=== PATIENT | male | born 1975 | race Caucasian/White ===

== ENCOUNTER 2019-01-26 16:01 | Inpatient (IN) | payer OTHER ==
[2019-01-26 16:38] LABS: ABS Basophils 0 10^3/ul (0-0.2); ABS Eosinophils 0 10^3/ul (0-0.6); ABS Lymphocytes 1.2 10^3/ul (1.0-4.8); ABS Monocytes 0.8 10^3/ul (0-0.8); ABS Neutrophils 6.4 10^3/ul (1.5-7.7); ABS Nucleated RBC 0 10^3/ul; Eosinophil % 0.2 %; Hematocrit 44 % (36-46); Hemoglobin 15.2 g/dL (14.0-18.0); Lymphocyte % 14.4 %; Mean Corpuscular HGB Conc 34 g/dL (31-36); Mean Corpuscular Hemoglobin 28 pg (27-31); Mean Corpuscular Volume 83 fL (80-94); Mean Platelet Volume 8.3 fL (7.4-10.4); Nucleated Red Blood Cells % 0; Platelet Count 246 10^3/uL (150-450); Red Blood Count 5.36 10^6 /uL (4.18-5.48); Red Cell Distribution Width 13 % (10.5-15); White Blood Count 8.5 10^3/uL (3.5-10.8)
[2019-01-26 16:39] LABS: Urine Appearance Clear; Urine Bilirubin Negative (Negative); Urine Blood Negative (Negative); Urine Color Yellow; Urine Glucose Negative (Negative); Urine Ketones Negative (Negative); Urine Nitrite Negative (Negative); Urine Protein Negative (Negative); Urine Specific Gravity 1.011 (1.010-1.030); Urine Urobilinogen Negative (Negative)
--- OUTSIDE RECORDS SUMMARY | 2019-01-26 16:48 | XMS REPORT | Continuity of Care Document ---
:1975 External Reference #:[id number] Author Name Ann Almazan Care Team Providers Name Role Phone Zion Bello MD Primary Care Physician Unavailable Payers Date Identification Numbers Payment Provider Subscriber Policy Number: [id number] [employer] Brianna Hong Group Number: [id number] [address] PayID: [id number] [place] [address] Effective: 2012 Policy Number: [id number] [employer] Terrance Hong Expires: 2015 Group Number: [id number] [address] Group Name: [place] [address] PayID: [id number] Onset: 2012 Policy Number: [id number] Ben Hong PayID: [id number] [address] [place] [address] Expires: 2012 Policy Number: [id number] [facility] Terrance Hong Group Number: [id number] [address] PayID: [id number] [place] [address] Advance Directives Description No Information Available Problems Date Description Provider Status Onset: 09/01/2015 Neck pain Juan Antonio Prieto M.D. Active Onset: 11/06/2016 Obstructive sleep apnea syndrome Kalyani Nicholas MD Active Family History Date Family Member(s) Observation Comments General Diabetes General Heart Disease General cancer Mother Arthritis Mother Sister has had severe Lyme disease and Arias's palsy Social History Type Date Description Comments Sex Unknown Marital Status Lives With Occupation Currently Working Occupation [employer] [place] Tobacco Use Start: Unknown Never Smoked Cigarettes Smoking Status Reviewed: 01/25/19 Never Smoked Cigarettes ETOH Use Currently consumes 3-4 drinks/week alcohol Tobacco Use Start: Unknown Patient has never used to chew tobacco smoked - quie 06/2014 Recreational Drug Use Denies Drug Use Exercise Type/Frequency Exercises regularly Active lifestyle Exercise Type/Frequency Does gardening 3 times a week Allergies, Adverse Reactions, Alerts Date Description Reaction Status Severity Comments 02/23/2014 Sulfa Antibiotics Urticaria Active 02/26/2017 Bees Active Medications Medication Date Status Form Strength Qnty SIG Indications Ordering Provider Clonazepam 01/25 Active Tablets 0.5mg 60tab take 1 tablet F41.1 s po tid prn Varn, anxiety N.P. Bupropion HCL 01/25 Active Tablets 100mg 60tab take 1 tablet F33.9 s by mouth two Varn, times daily N.P. Baclofen 09/10 Active Tablets 10mg 30tab take 11/04-1 M54.9 s tab every 8 SONA Springer hours as needed Ibuprofen 03/10 Active Tablets 800mg 60tab by mouth s three times a SONA Springer day with food as needed Sertraline HCL 03/10 Active Tablets 100mg 45tab 1 11/04 by s mouth daily Varn, N.P. Miralax 02/05 Active Powder 3350NF 510un dissolve 1 its tablespoonful SONA Springer once daily in liquid as needed Hydroxyzine HCL 12/08 Hx Tablets 25mg 30tab 1 tablets by F41.1 s mouth every Varn, - 6-8 hours as N.P. 01/25 needed anxiety Zoloft 01/15 Hx Tablets 50mg 1 by mouth every day. SONA Springer - 100 mg once 03/10 daily per pt 02/04/18 Probiotic Colon 01/15 Hx Capsules 90cap once a day K59.00 Hernandez s SONA Springer - 09/10 Cyanocobalamin 03/04 Hx Tablets 2500mcg 90tab take one Sub s capsule/table Carlos, - t daily M.D. 09/10 sublingually. 500 mcg once daily per pt 02/04/18 Flomax 11/05 Hx Capsules 0.4mg 1 by mouth every day - 01/28 Cyclobenzaprine 06/23 Hx Tablets 10mg 60tab one tab every Juan Antonio J. HCL s 8 hours as Conner, - needed pain M.D. 01/28 and spasm Tramadol HCL 06/23 Hx Tablets 50mg 60tab 1-2 po qid Darren s prn Jhon, - N.P. 09/01 Robaxin-750 Hx Tablets 750mg 50tab 1-2 po q8 hrs . s prn muscle Emily, - spasm M.D. 09/01 Percocet Hx Tablets 5-325mg 40tab 1-2 po q4h . s prn pain Zupruk, - M.D. 09/01 Soma 00 Hx Tablets 350mg take 1/2 to 1 Unknown /0000 by mouth up - to three 01/28 times a day /2016 as needed Hydrocodone-Acet Hx Tablets 5-325mg 1 tab by Unknown aminophen /0000 mouth every 6 - hours as 01/28 needed pain /2016 Immunizations CPT Code Status Date Vaccine Lot # [id number] Given 07/30/2018 Influenza Virus Vaccine, Quadrivalent, Split, Preservative Free Vital Signs Date Vital Result Comment 01/25/2019 11:32am Height 67 inches 5'7" Weight 148.00 lb Heart Rate 72 /min BP Systolic 118 mmHg BP Diastolic 67 mmHg Body Temperature 97.6 F O2 % BldC Oximetry 97 % BMI (Body Mass Index) 23.2 kg/m2 12/08/2018 11:50am Height 67 inches 5'7" Weight 154.00 lb Heart Rate 72 /min BP Systolic 122 mmHg BP Diastolic 74 mmHg Body Temperature 97.1 F O2 % BldC Oximetry 97 % BMI (Body Mass Index) 24.1 kg/m2 09/10/2018 4:02pm Height 67 inches 5'7" Weight 163.00 lb Heart Rate 72 /min BP Systolic 115 mmHg BP Diastolic 75 mmHg O2 % BldC Oximetry 97 % BMI (Body Mass Index) 25.5 kg/m2 02/04/2018 10:14am Height 67 inches 5'7" Weight 162.12 lb Heart Rate 66 /min BP Systolic Sitting 110 mmHg Lue large cuff BP Diastolic Sitting 70 mmHg Lue large cuff Respiratory Rate 16 /min O2 % BldC Oximetry 97 % On Ra BMI (Body Mass Index) 25.4 kg/m2 01/15/2018 3:42pm Weight 171.75 lb Heart Rate 82 /min BP Systolic 112 mmHg BP Diastolic 62 mmHg O2 % BldC Oximetry 96 % 02/26/2017 2:12pm Height 67 inches 5'7" Weight 169.12 lb Heart Rate 72 /min BP Systolic Sitting 137 mmHg BP Diastolic Sitting 75 mmHg Respiratory Rate 14 /min Body Temperature 98.7 F BMI (Body Mass Index) 26.5 kg/m2 01/29/2017 2:49pm Height 67 inches 5'7" Weight 171.50 lb Heart Rate 60 /min BP Systolic Sitting 108 mmHg BP Diastolic Sitting 68 mmHg Respiratory Rate 14 /min Body Temperature 97.3 F BMI (Body Mass Index) 26.9 kg/m2 11/06/2016 3:04pm Height 67 inches 5'7" Weight 67.00 lb BP Systolic 108 mmHg BP Diastolic 70 mmHg Respiratory Rate 16 /min O2 % BldC Oximetry 97 % BMI (Body Mass Index) 10.5 kg/m2 09/01/2015 3:26pm Height 67 inches 5'7" Weight 163.00 lb Heart Rate 78 /min BP Systolic Sitting 122 mmHg BP Diastolic Sitting 80 mmHg Pain Level 6 neck/back BMI (Body Mass Index) 25.5 kg/m2 Results Test Date Facility Test Result H/L Range Note CBC Auto Diff 09/21/2018 [facility] White Blood 6.9 10^3/uL N 3.5-10.[address] [place] [address] [phone] Red Blood Count 5.09 10^6/uL N 4.00-5.40 Hemoglobin 14.6 g/dL N 14.0-18.0 Hematocrit 43 % N 42-52 Mean Corpuscular Volume 84 fL N 80-94 Mean Corpuscular Hemoglobin 29 pg N 27-31 Mean Corpuscular HGB Conc 34 g/dL N 31-36 Red Cell Distribution Width 13 % N 10.5-15 Platelet Count 226 10^3/uL N 150-450 Mean Platelet Volume 8.9 fL N 7.4-10.4 Abs Neutrophils 4.1 10^3/uL N 1.5-7.7 Abs Lymphocytes 2.2 10^3/uL N 1.0-4.8 Abs Monocytes 0.6 10^3/uL N 0-0.8 Abs Eosinophils 0 10^3/uL N 0-0.6 Abs Basophils 0 10^3/uL N 0-0.2 Abs Nucleated RBC 0 10^3/uL Granulocyte % 58.4 % N 38-83 Lymphocyte % 31.6 % N 25-47 Monocyte % 9.1 % High 0-7 Eosinophil % 0.5 % N 0-6 Basophil % 0.4 % N 0-2 Nucleated Red Blood Cells % 0.1 Comp Metabolic Panel 09/21/2018 [facility] Sodium 142 mmol/L N 135-[address] [place] [address] [phone] Potassium 4.1 mmol/L N 3.5-5.0 Chloride 109 mmol/L N 101-111 Co2 Carbon Dioxide 28 mmol/L N 22-32 Anion Gap 5 mmol/L N 2-11 Glucose 93 mg/dL N 70-100 Blood Urea Nitrogen 15 mg/dL N 6-24 Creatinine 1.10 mg/dL N 0.67-1.17 BUN/Creatinine Ratio 13.6 N 8-20 Calcium 9.7 mg/dL N 8.6-10.3 Total Protein 6.8 g/dL N 6.4-8.9 Albumin 4.4 g/dL N 3.2-5.2 Globulin 2.4 g/dL N 2-4 Albumin/Globulin Ratio 1.8 N 1-3 Total Bilirubin 0.60 mg/dL N 0.2-1.0 Alkaline Phosphatase 58 U/L N 34-104 Alt 14 U/L N 7-52 Ast 15 U/L N 13-39 Egfr Non- 73.4 >60 Egfr 88.8 >60 1 Laboratory test 09/21/2018 [facility] C Reactive < 1.00 mg/L N <8.[address] [place] [address] [phone] Connective Tissue 09/21/2018 [facility] Anti-Nuclear 0.2 U [address] [place] [address] [phone] Cyclic Citrullinated Peptide <15.6 U 3 Interpretation See Comment 4 Laboratory test 09/21/2018 [facility] Erythrocyte Sed 10 mm/Hr N 0-[address] [place] [address] [phone] Lyme Disease Serology Negative Negative 5 Rheumatoid Factor < 10 IU/mL N <15 TSH (Thyroid Stim Horm) 1.31 mcIU/mL N 0.34-5.60 Tick-Borne Panel 09/21/2018 [facility] Babesia Negative Negative PCR Blood [address] [place] [address] [phone] Babesia ducani Negative Negative Babesia divergens/Mo-1 Negative Negative 6 Anaplasma phagocytophilum Negative Negative Ehrlichia chaffeensis Negative Negative Ehrlichia ewingii/canis Negative Negative Ehrlichia muris-like Negative Negative 7 B. miyamotoi PCR, B Negative Negative 8 Laboratory test 03/05/2018 [facility] Surgical SEE RESULT 9 , [address] [place] [address] [phone] Order 01/30/2018 [facility] Stool cards Negative [address] [place] [address] blood x 3 [phone] CBC Auto Diff 01/17/2018 [facility] White Blood 6.8 10^3/uL N 3.5-[address] Count 0.8 [place] [address] [phone] Red Blood Count 5.43 10^6/uL High 4.0-5.4 Hemoglobin 15.2 g/dL N 14.0-18.0 Hematocrit 46 % N 42-52 Mean Corpuscular Volume 84 fL N 80-94 Mean Corpuscular Hemoglobin 28 pg N 27-31 Mean Corpuscular HGB Conc 33 g/dL N 31-36 Red Cell Distribution Width 13 % N 10.5-15 Platelet Count 243 10^3/uL N 150-450 Mean Platelet Volume 9 um3 N 7.4-10.4 Abs Neutrophils 3.8 10^3/uL N 1.5-7.7 Abs Lymphocytes 2.2 10^3/uL N 1.0-4.8 Abs Monocytes 0.7 10^3/uL N 0-0.8 Abs Eosinophils 0.1 10^3/uL N 0-0.6 Abs Basophils 0 10^3/uL N 0-0.2 Abs Nucleated RBC 0 10^3/uL Granulocyte % 56.1 % N 38-83 Lymphocyte % 31.8 % N 25-47 Monocyte % 10.7 % High 0-7 Eosinophil % 1.0 % N 0-6 Basophil % 0.4 % N 0-2 Nucleated Red Blood Cells % 0.1 Comp Metabolic Panel 01/17/2018 [facility] Sodium 137 mmol/L N 133-[address] [place] [address] [phone] Potassium 4.5 mmol/L N 3.5-5.0 Chloride 106 mmol/L N 101-111 Co2 Carbon Dioxide 26 mmol/L N 22-32 Anion Gap 5 mmol/L N 2-11 Glucose 124 mg/dL High 70-100 Blood Urea Nitrogen 18 mg/dL N 6-24 Creatinine 1.02 mg/dL N 0.67-1.17 BUN/Creatinine Ratio 17.6 N 8-20 Calcium 9.7 mg/dL N 8.6-10.3 Total Protein 6.8 g/dL N 6.4-8.9 Albumin 4.1 g/dL N 3.2-5.2 Globulin 2.7 g/dL N 2-4 Albumin/Globulin Ratio 1.5 N 1-3 Total Bilirubin 0.80 mg/dL N 0.2-1.0 Alkaline Phosphatase 61 U/L N 34-104 Alt 15 U/L N 7-52 Ast 13 U/L N 13-39 Egfr Non- 80.5 >60 Egfr 103.5 >60 11 Laboratory test 01/17/2018 [facility] TSH (Thyroid 0.94 mcIU/mL N 0.34-5.[address] Stim Horm) [place] [address] [phone] Vitamin B12 > 1450 pg/mL High 180-914 12 Laboratory test 02/26/2017 [facility] Angiotensin 43 U/L N 8 - 53 [address] [place] [address] [phone] Creatine Kinase(CK) 132 U/L N 10-223 CBC Auto Diff 02/26/2017 [facility] White Blood 9.2 10^3/uL N 3.5-10.[address] [place] [address] [phone] Red Blood Count 5.52 10^6/uL High 4.0-5.4 Hemoglobin 15.2 g/dL N 14.0-18.0 Hematocrit 45 % N 42-52 Mean Corpuscular Volume 82 fL N 80-94 Mean Corpuscular Hemoglobin 27 pg N 27-31 Mean Corpuscular HGB Conc 34 g/dL N 31-36 Red Cell Distribution Width 13 % N 10.5-15 Platelet Count 242 10^3/uL N 150-450 Mean Platelet Volume 9 um3 N 7.4-10.4 Abs Neutrophils 5.6 10^3/uL N 1.5-7.7 Abs Lymphocytes 2.8 10^3/uL N 1.0-4.8 Abs Monocytes 0.8 10^3/uL N 0-0.8 Abs Eosinophils 0 10^3/uL N 0-0.6 Abs Basophils 0 10^3/uL N 0-0.2 Abs Nucleated RBC 0 10^3/uL N Granulocyte % 61.0 % N 38-83 Lymphocyte % 30.1 % N 25-47 Monocyte % 8.3 % N 1-9 Eosinophil % 0.2 % N 0-6 Basophil % 0.4 % N 0-2 Nucleated Red Blood Cells % 0 N Laboratory test 02/26/2017 [facility] C Reactive 1.30 mg/L N < 5.00 [address] [place] [address] [phone] Laboratory test 02/26/2017 [facility] Miscellaneous See Comment N [address] [place] [address] [phone] Ferritin 107.3 ng/mL N 24-336 Celiac Hla DQ1/DQ2 02/26/2017 [facility] Hla-Dqa1 SEE BELOW N [address] [place] [address] [phone] Hla-DQB1 SEE BELOW N 17 Celiac Gene Pairs Present? Yes N Celiac Gene Interpretation See Comment N 18 Celiac Panel 02/26/2017 [facility] Tissue Transglutaminase <1.2 U/mL N [address] [place] [address] [phone] Immunoglobulin A 350 mg/dL N 61 - 356 Celiac Interpretation See Comment N 20 Alkaline Phos 02/26/2017 [facility] Alkaline 73 U/L N 45 - [address] [place] [address] [phone] Alp Liver 1% 52.1 % N 27.8-76.3 Alp Liver 1 38.0 IU/L N 16.2-70.2 Alp Liver 2% 2.7 % N 0.0-8.0 Alp Liver 2 2.0 IU/L N 0.0-5.8 Alp Bone % 45.2 % N 19.1-67.7 Alp Bone 33.0 IU/L N 12.1-42.7 Alp Intestine % 0.0 % N 0.0-20.6 Alp Intestine 0.0 IU/L N 0.0-11.0 Alp Placental NotPresent N 21 Laboratory test 02/26/2017 [facility] Erythrocyte Sed 10 mm/Hr N 0-[address] [place] [address] [phone] Free T4 (Free Thyroxine) 0.80 ng/dL N 0.61-1.12 T3 Free 4.70 pg/mL High 2.5-3.9 Hepatitis 02/26/2017 [facility] Hepatitis C Nonreactive N Nonreactive Acute Panel [address] [place] [place] [address] [phone] Hepatitis A AB Igm Nonreactive N Nonreactive Hepatitis B Core AB Igm Nonreactive N Nonreactive Hepatitis B Surface Ag Nonreactive N Nonreactive Anca AB Ser If 02/26/2017 [facility] C-Anca Negative N Negative [address] [place] [address] [phone] P-Anca Negative N Negative 22 Vitamin B12 And 02/26/2017 [facility] Vitamin B12 211 pg/mL N 180-914 23 Folate Serum [address] [place] [address] [phone] Folic Acid (Folate) 6.59 ng/mL N >3.99 Vitamin D 1,25 02/26/2017 [facility] Vitamin D Total 31.8 ng/mL N 30-50 And Vitamin D,[address] 25(Oh) [place] [address] [phone] Vitamin D, 1,25 Dihydroxy 103 pg/mL Abnormal 18-64 24 Hla B27 02/26/2017 [facility] Hla B27 Negative N [address] [place] [address] [phone] Hla B27 Interp See Comment N 26 Laboratory test 02/26/2017 [facility] Copper, Serum 1.00 g/mL N 0.75-1.45 [address] [place] [address] [phone] Laboratory test 02/26/2017 [facility] Aldolase 6.6 U/L N <7.7 [address] [place] [address] [phone] Aso (Antistreptolysin O) Titer Negative IU/mL N <200 Iu/mL 29 Acetylcarnintine 02/26/2017 [facility] Acetylcarnitine 10.31 N 2.00-17.[address] C2 nmol/[place] [address] [phone] Acrylylcarnitine C3:1 <0.02 nmol/mL N <0.07 Propionylcarnitine C3 0.40 nmol/mL N < 0.88 Formiminoglutamate, Figlu 0.01 nmol/mL N <0.14 Iso Butyrylcarnitine C4 0.20 nmol/mL N < 0.83 Tiglylcarnitine, C5:1 0.03 nmol/mL N <0.11 Isovaleryl 2 Methylbutyrylcarn 0.17 nmol/mL N < 0.51 3 Oh iso butyrylcarnitin C4-Oh 0.04 nmol/mL N <0.18 Hexenoylcarnitine C6:1 0.01 nmol/mL N <0.15 Hexanolcarnitine C6 0.07 nmol/mL N < 0.17 3 Oh isovalerylcarnitine C5-Oh 0.03 nmol/mL N <0.10 Benzoylcarnitine 0.03 nmol/mL N <0.10 Heptanoylcarnitine, C7 0.03 nmol/mL N <0.06 3 Oh Hexanolcarnitine C6-Oh 0.02 nmol/mL N < 0.09 Phenylacetylcarnitine 0.06 nmol/mL N <0.29 Salicylcarnitine <0.05 nmol/mL N <0.09 Octenoylcarnitine C8:1 0.58 nmol/mL N < 0.88 Octenoylcarnitine C8 0.21 nmol/mL N < 0.78 Malonylcarnitine, C3-DC 0.08 nmol/mL N <0.26 Decadienoylcarnitine C10:2 <0.05 nmol/mL N <0.26 Decenoylcarnitine C10:1 0.21 nmol/mL N < 0.47 Decenoylcarnitine C10 0.31 nmol/mL N < 0.88 Methylmalonylcarnitine C4-DC 0.05 nmol/mL Abnormal <0.05 3Oh-decenoylcarnitine C10:1-Oh 0.02 nmol/mL N <0.13 Glutarylcarnitine C5-DC 0.06 nmol/mL N < 0.11 Dodecenoylcarnitine C12:1 0.10 nmol/mL N < 0.35 Dodecenoylcarnitine C12 0.09 nmol/mL N < 0.26 3Methylglutarylcarnitine C6-DC 0.05 nmol/mL N <0.43 3OHdodecenoylcarnitine C12:1Oh 0.03 nmol/mL N <0.13 3 Oh Dodecenoylcarnitine C12-O 0.02 nmol/mL N < 0.08 Tetradecadienoylcaraitine C14: 0.04 nmol/mL N < 0.18 Tetradecenoylcarnitine C14:1 0.10 nmol/mL N < 0.24 Tetradecenoylcarnitine C14 0.03 nmol/mL N < 0.12 Octanedioylcarnitine, C8-DC 0.01 nmol/mL N <0.19 3 Oh Tetradecenoylcarnitine C1 0.02 nmol/mL N < 0.13 2-Bv-Jtcwajpeqsozybsqooycfn C1 0.01 nmol/mL N < 0.08 Hexadecenoylcarnitine C16:1 0.04 nmol/mL N < 0.10 Hexadecanoylcarnitine C16 0.09 nmol/mL N < 0.23 3 Oh Hexadecenoylcarnitine C16 0.02 nmol/mL N < 0.06 3 Oh Hexadecenoylcarnitine C16 0.01 nmol/mL N < 0.06 Linoleylcarnitine C18:2 0.07 nmol/mL N < 0.24 Oleylcarnitine C18:1 0.17 nmol/mL N < 0.39 Stearoylcarnitine C18 0.05 nmol/mL N < 0.14 Dodecanedioylcarnitine, C12-DC 0.01 nmol/mL N <0.04 3 Oh Linoleylcarnitine C18:2-O <0.02 nmol/mL N < 0.06 3 Oh Oleylcarnitine C18:1-Oh 0.01 nmol/mL N < 0.06 3OHoctadecanoylcarnitine C18oh 0.01 nmol/mL N <0.03 Acylcarnitine Comment See Comment N 30 Laboratory test 02/26/2017 [facility] Ammonia 44 ?mol/L N 16- [address] [place] [address] [phone] Ssa/SSB Abs Igg 02/26/2017 [facility] SS-A/Ro <0.2 U N [address] [place] [address] [phone] SS-B/La Antibody <0.2 U N 32 Laboratory test 02/26/2017 [facility] Free Cortisol 0.15 g/dL N [address] [place] [address] [phone] Comp Metabolic 02/26/2017 [facility] Sodium 137 mmol/L N 133- [address] 5 [place] [address] [phone] Potassium 3.8 mmol/L N 3.5-5.0 Chloride 104 mmol/L N 101-111 Co2 Carbon Dioxide 27 mmol/L N 22-32 Anion Gap 6 mmol/L N 2-11 Glucose 98 mg/dL N 70-100 Blood Urea Nitrogen 13 mg/dL N 6-24 Creatinine 1.13 mg/dL N 0.67-1.17 BUN/Creatinine Ratio 11.5 N 8-20 Calcium 9.6 mg/dL N 8.6-10.3 Total Protein 7.4 g/dL N 6.4-8.9 Albumin 4.4 g/dL N 3.2-5.2 Globulin 3.0 g/dL N 2-4 Albumin/Globulin Ratio 1.5 N 1-3 Total Bilirubin 0.60 mg/dL N 0.2-1.0 Alkaline Phosphatase 66 U/L N 34-104 Alt 17 U/L N 7-52 Ast 15 U/L N 13-39 Egfr Non- 71.9 N >60 Egfr 92.4 N >60 34 Surgical 12/24/2011 [facility] Surgical 35 Pathology 101 [facility] Pathology <SEE NOTE> [place] [address] [phone] Laboratory 12/18/2011 [facility] PTT (Aptt) 31.4 25.1 36 test finding [facility] 5-38 [place] [address] .53 [phone] Type And 12/18/2011 [facility] Patient Blood A POSITIVE Screen [address] [place] [address] Type (Pre-Adm) [place] [address] [phone] Antibody Screen NEGATIVE Specimen Discard Date 01/01/12 37 Protime 12/18/2011 [facility] Inr 0.99 0.88-1.13 [address] [place] [address] [phone] Protime 11.7 SEC 10.3-13.5 39 Basic Metabolic Panel 12/18/2011 [facility] Sodium 141 mmol/L 135-145 [place] [address] [phone] Potassium 4.4 mmol/L 3.5-5.0 Chloride 105 mmol/L 101-111 Co2 (Carbon Dioxide) 30.0 mmol/L 22-32 Anion Gap 6.0 mmol/L 2-11 40 Glucose 65 mg/dL Low 70-100 BUN 16 mg/dL 6-24 Creatinine 1.0 mg/dL 0.50-1.40 One Over Creatinine 1.00 BUN/Creatinine Ratio 16.0 8-20 Calcium 9.7 mg/dL 8.1-9.9 eGFR Non- 85.0 > 60 eGFR 109.4 > 60 41 CBC Auto Diff 12/18/2011 [facility] White Blood 8.9 CUMM 4.8- 10.8 [address] [facility] [place] [address] [phone] Red Cell Count 5.39 CUMM 4.6-6.2 Hemoglobin 15.7 g/dL 14.0-18.0 Hematocrit 46 % 42-52 Mean Corpuscular Volume 85 um3 80-94 Mean Corpuscular Hemoglob 29 pg 27-31 Mean Corpuscular HGB Cone 35 g/dL 32-36 Redcell Distribution WDTH 13 % 10.5-15 Platelet Count 250 CUMM 150-450 Mean Platelet Volume 9.2 um3 7.4-10.4 Gran % 63.1 % 38-83 Lymph % 26.1 % 25-47 Mononuclear % 9.7 % High 1-9 Eosinophil % 0.8 % 0-6 Basophil % 0.3 % 0-2 Abs Lymphs 2.3 1.0-4.8 Abs Mononuclear 0.9 High 0-0.8 Absolute Neutrophil Count 5.6 1.5-7.7 Abs Eosinophils 0.1 0-0.6 Abs Basophils 0 0-0.2 1 Because ethnic data is not always readily available, this report includes an eGFR for both -Americans and non- Americans. The National Kidney Disease Education Program (NKDEP) does not endorse the use of the MDRD equation for patients that are not between the ages of 18 and 70, are , have extremes of body size, muscle mass, or nutritional status, or are non- or non-. According to the National Kidney Foundation, irrespective of diagnosis, the stage of the disease is based on the level of kidney function: Stage Description GFR(mL/min/1.73 m(2)) 1 Kidney damage with normal or decreased GFR 90 2 Kidney damage with mild decrease in GFR 60-89 3 Moderate decrease in GFR 30-59 4 Severe decrease in GFR 15-29 5 Kidney failure <15 (or dialysis) 2 REFERENCE VALUE <=1.0 (Negative) 3 REFERENCE VALUE <20.0 (Negative) 4 Tests for antibodies to dsDNA and ROSY antigens are not performed automatically unless the NICHOLE result is > or= 3.0 U. Studies performed at [facility] indicate that positive NICHOLE results <3.0 U are rarely accompanied by positive second order tests. Test Performed by: [facility] - [address] [address] 5 No evidence of antibodies to B. burgdorferi detected. False negative results may occur in recently infected patients (<=2 weeks) due to low or undetectable antibody levels to B. burgdorferi. If recent exposure is suspected, a second sample should be collected and tested in 2-4 weeks. Test Performed by: [facility] - [address] [address] 6 ADDITIONAL INFORMATION This test was developed and its performance characteristics determined by [facility] in a manner consistent with CLIA requirements. This test has not been cleared or approved by the U.S. Food and Drug Administration. 7 ADDITIONAL INFORMATION This test was developed and its performance characteristics determined by [facility] in a manner consistent with CLIA requirements. This test has not been cleared or approved by the U.S. Food and Drug Administration. 8 ADDITIONAL INFORMATION This test was developed and its performance characteristics determined by [facility] in a manner consistent with CLIA requirements. This test has not been cleared or approved by the U.S. Food and Drug Administration. Test Performed by: [facility] - [address] [id number] SEE RESULT BELOW Name: ANDERSON HONG : [address]: Matt Aguiar MD Acct: [id number] Unit: [id number] AGE: 42 Location: [facility] Re03/05/18 SEX: M Status: DEP REF SPEC: [id number] JULISSA: 03/05/1827 [facility] DR: Matt Aguiar MD REQ: [id number] RECD: 03/05/18 STATUS: JULITA DIALLO DR: Hernandez Springer [employer] _ ORDERED: LEVEL 4/2 COMMENTS: [id number] FINAL DIAGNOSIS 1. Colon, random, biopsy: -- Benign colonic mucosa with no significant pathologic abnormalities. -- No evidence of microscopic colitis. 2. Colon, rectum, biopsy: -- Benign colonic mucosa with no significant pathologic abnormalities. -- No evidence of microscopic colitis. CLINICAL HISTORY No history given POST-OPERATIVE DIAGNOSIS Colonoscopy to terminal ileum ? normal; random and rectal biopsies; negative upper anal sphincter tone; negative bert-rectum. Conclusions/Plan: 10 years GROSS DESCRIPTION 1. The specimen is received in formalin labeled, Biopsies Random Colon, and consists of a 0.6 x 0.5 by up to 0.2 cm aggregate of yellow to byers-pink irregular to polypoid soft tissue fragments, which is entirely submitted in one cassette. 2. The specimen is received in formalin labeled, Biopsies Rectum, and consists of two byers red-brown irregular to polypoid soft tissue fragments measuring 0.3 x 0.3 x 0.2 cm and 0.5 x 0.3 x 0.1 cm, which are entirely submitted in one cassette. Signed by and Reported on: Pat Palmer MD 03/06/18 1034 END OF REPORT DEPARTMENT OF PATHOLOGY, [address] [place] [address] You Schaefer M.D. Director [facility] # [id number] 11 Because ethnic data is not always readily available, this report includes an eGFR for both -Americans and non- Americans. The National Kidney Disease Education Program (NKDEP) does not endorse the use of the MDRD equation for patients that are not between the ages of 18 and 70, are , have extremes of body size, muscle mass, or nutritional status, or are non- or non-. According to the National Kidney Foundation, irrespective of diagnosis, the stage of the disease is based on the level of kidney function: Stage Description GFR(mL/min/1.73 m(2)) 1 Kidney damage with normal or decreased GFR 90 2 Kidney damage with mild decrease in GFR 60-89 3 Moderate decrease in GFR 30-59 4 Severe decrease in GFR 15-29 5 Kidney failure <15 (or dialysis) 12 Normal Range 180 to 914 Indeterminate Range 145 to 180 Deficient Range <145 13 Test Performed by: [address] [address] 14 Acute inflammation: >10.00 15 Test Result Flag Unit RefValue Tropheryma whipplei PCR, B Specimen Source BLOOD Result Negative REFERENCE VALUE Not Applicable ADDITIONAL INFORMATION This test was developed and its performance characteristics determined by [facility] in a manner consistent with CLIA requirements. This test has not been cleared or approved by the U.S. Food and Drug Administration. Test Performed by: [facility] - [address] [address] 16 RESULT: 03:01,03 REFERENCE VALUE Not Applicable 17 RESULT: 03:02,03:02 DQ Serologic Equivalent: 8,8 REFERENCE VALUE Not Applicable 18 These genes are permissive for celiac disease. The absence of HLA celiac permissive genes would make the presence of celiac disease unlikely. However, these genes can also be present in the normal population. ADDITIONAL INFORMATION Method: Molecular typing of HLA antigens performed using reverse SSOP and/or SSP methods, reported as serological equivalents and low to medium resolution molecular values. Performing Laboratory CLIA# [id number] Test Performed by: [facility] - [address] [address] 19 REFERENCE VALUE <4.0 (Negative) Test Performed by: [facility] - [address] [address] 20 Negative serology. Celiac disease unlikely. However, approximately 10% of patients with celiac disease are seronegative. Also, patients who are already adhering to a gluten-free diet may be seronegative. If celiac disease is highly clinically suspected, consider HLA-DQ typing. Test Performed by: [facility] - [address] [address] 21 REFERENCE VALUE Not present Test Performed by: [facility] - [address] [address] 22 Negative for cANCA and pANCA patterns by immunofluorescence. ADDITIONAL INFORMATION This test was developed and its performance characteristics determined by [facility] in a manner consistent with CLIA requirements. This test has not been cleared or approved by the U.S. Food and Drug Administration. Test Performed by: [facility] - [address] [address] 23 Normal Range 180 to 914 Indeterminate Range 145 to 180 Deficient Range <145 24 ADDITIONAL INFORMATION This test was developed and its performance characteristics determined by [facility] in a manner consistent with CLIA requirements. This test has not been cleared or approved by the U.S. Food and Drug Administration. Test Performed by: [facility] - [address] [address] 25 REFERENCE VALUE Not Applicable 26 RESULT: HLA-B27 antigen was not detected. ADDITIONAL INFORMATION Method: Flow Cytometry Performing Laboratory CLIA# [id number] This test was developed and its performance characteristics determined by [facility] in a manner consistent with CLIA requirements. This test has not been cleared or approved by the U.S. Food and Drug Administration. Test Performed by: [facility] - [address] [address] 27 ADDITIONAL INFORMATION This test was developed and its performance characteristics determined by [facility] in a manner consistent with CLIA requirements. This test has not been cleared or approved by the U.S. Food and Drug Administration. Test Performed by: [facility] - [address] [address] 28 Test Performed by: [facility] - [address] [address] 29 Normal values may vary with age, season and geographic area. Titers above upper limits may be indicative of infection, however only a two dilution rise in titer is required to be considered significant. ASO titer will usually rise above upper limits within one week of exposure, increase to peak levels at 3-5 weeks and return to baseline level at 6-12 twelve months. 30 In this sample, the acylcarnitine profile was essentially normal. ADDITIONAL INFORMATION This test was developed and its performance characteristics determined by [facility] in a manner consistent with CLIA requirements. This test has not been cleared or approved by the U.S. Food and Drug Administration. Test Performed by: [facility] - [address] [address] 31 REFERENCE VALUE <1.0 (Negative) 32 REFERENCE VALUE <1.0 (Negative) Test Performed by: [facility] - [address] [address] 33 Adult Reference Ranges for Cortisol, Free, LC/MS/MS: 8:00 - 10:00 AM 0.07-0.93 mcg/dL 4:00 - 6:00 PM 0.04-0.45 mcg/dL 10:00 - 11:00 PM 0.04-0.35 mcg/dL This test was developed and its analytical performance characteristics have been determined by [facility]. It has not been cleared or approved by FDA. This assay has been validated pursuant to the CLIA regulations and is used for clinical purposes. Test Performed by: [facility] [place] [address] [place] [address] 34 Because ethnic data is not always readily available, this report includes an eGFR for both -Americans and non- Americans. The National Kidney Disease Education Program (NKDEP) does not endorse the use of the MDRD equation for patients that are not between the ages of 18 and 70, are , have extremes of body size, muscle mass, or nutritional status, or are non- or non-. According to the National Kidney Foundation, irrespective of diagnosis, the stage of the disease is based on the level of kidney function: Stage Description GFR(mL/min/1.73 m(2)) 1 Kidney damage with normal or decreased GFR 90 2 Kidney damage with mild decrease in GFR 60-89 3 Moderate decrease in GFR 30-59 4 Severe decrease in GFR 15-29 5 Kidney failure <15 (or dialysis) 35 ---- RUN DATE: 12/25/11 [facility] NMI LIVE PAGE 1 RUN TIME: 1457 Specimen Inquiry RUN USER: INTERFACE -- Name: ANDERSON HONG Status: DIS IN Re12/24/11 Age/Sex: 36/M Unit#: [id number] Location: [facility] : 77 -- Specimen: [id number] SOUSanya Spec Date: 12/24/[address]: Karthik Mitchell MD Spec Type: SURGICAL P Received: 12/24/11-1254 Copies to: SPECIMEN 1) C4-C5 DISC 2) C5-6 DISC HISTORY PRE-OP DIAGNOSIS: C4-5, C5-6 herniated disc. GROSS DESCRIPTION 1) The specimen is received in formalin labelled Anderson Hong, C4-5 Disc, and consists of a few fragments of pink dense fibrous tissue measuring in aggregate 3.0 x 2.5 x 2.0 cm. Golf Caddie section, one cassette labelled 1. 2) The specimen is received in formalin labelled Anderson Hong, C5-6 Disc, and consists of a few fragments of pink dense fibrous tissue measuring in aggregate 3.0 x 2.5 x 2.0 cm. Golf Caddie section, one cassette labelled 2. DIAGNOSIS 1) Disc, C4-5, discectomy: Fibrohyaline cartilage with marked regenerative changes. 2) Disc, C5-6, discectomy: Fibrohyaline cartilage with marked regenerative changes. Signed Electronically by: RADHA SCHOFIELD 12/25/11 1457 -- -- DEPARTMENT OF PATHOLOGY, [address] [place] [address] [facility] Permit #[id number] You Schaefer M.D. Director Radha Schofield M.D. Cryogenics Repairer Dir miguel angel -- 36 AA 12/24/11 37 PREADMISSION TESTING SAMPLES FOR BLOOD BANK WILL BE HELD FOR 14 DAYS FROM THE DATE OF COLLECTION *IF* THE FOLLOWING CRITERIA ARE MET: 1) THE PATIENT HAS *NOT* BEEN IN THE LAST 3 MONTHS. 2) THE PATIENT HAS *NOT* BEEN TRANSFUSED IN THE LAST 3 MONTHS. PREADMISSION TESTING SAMPLES WILL *NOT* BE HELD FOR 14 DAYS FROM PATIENTS WHO IN THE LAST 3 MONTHS: 1) HAVE BEEN 2) HAVE BEEN TRANSFUSED THESE PATIENTS *MUST* BE COLLECTED WITHIN 3 DAYS OF THE SURGERY DATE. 38 Recommended INR for Patients on Oral Anticoagulants Prophylaxis 2.0 - 3.0 Treatment of thrombosis 2.0 - 3.0 Prevention of embolism 2.0 - 3.0 Prevention of embolism from prosthetic heart valves 2.5 - 3.5 39 DIAGNOSIS,TREATMENT,AND THERAPY MUST BE BASED ON THE INR VALUE ALONE. 40 Anion gap measurement may be of limited value in the presence of any alkalosis, especially in a combined acid base disorder. . 41 Because ethnic data is not always readily available, this report includes an eGFR for both -Americans and non- Americans. The National Kidney Disease Education Program (NKDEP) does not endorse the use of the MDRD equation for patients that are not between the ages of 18 and 70, are , have extremes of body size, muscle mass, or nutritional status, or are non- or non-. According to the National Kidney Foundation, irrespective of diagnosis, the stage of the disease is based on the level of kidney function: Stage Description GFR(mL/min/1.73 m(2)) 1 Kidney damage with normal or decreased GFR 90 2 Kidney damage with mild decrease in GFR 60-89 3 Moderate decrease in GFR 30-59 4 Severe decrease in GFR 15-29 5 Kidney failure <15 (or dialysis) Procedures Date Code Description Status 03/05/2018 [id number] Colonoscopy Completed 12/21/2013 12470 Polysomnography Sleep Staging 4+ Parameters W/Cpap Completed 12/01/2013 27816 Polysomnography Sleep Staging 4+ Parameters Completed 11/02/2012 69679 Rad Exam; Elbow, Limited Completed 11/02/2012 05576 Rad Exam; Elbow, Limited Completed 11/02/2012 09914 Rad Exam; Elbow, Limited Completed 12/24/2011 95840 Anterior Instrumentation 2-3 Vertebral Segments Completed 12/24/2011 72318 arthrodesis,anterior interbody incl disc space Completed prep,discectomy,de 12/24/2011 91476 Allograft For Spine Surgery,Structural (Bone Bank) Completed 12/18/2011 79761 EKG, Interpretation Only Completed 11/11/2011 97600 Rad Shoulder Comp, Min. 2 Views Completed Encounters Type Date Location Provider Dx Diagnosis Office Visit 12/08/2018 [facility] Internal Neelam Warren, F41.1 Generalized anxiety 11:40a Medicine - N.P. disorder [place] Office Visit 09/10/2018 [facility] Internal Hernandez Springer NP M54.2 Cervicalgia 4:00p Medicine - Surekha M54.9 Dorsalgia, unspecified M25.50 Pain in unspecified joint R53.83 Other fatigue Office Visit 02/04/2018 Pulmonology And Irena G47.33 Obstructive sleep 10:30a Sleep Services Of LUIS Moore, RN, apnea (adult) [facility] SHEET MANAGER-BC (pediatric) Office Visit 01/15/2018 [facility] Internal Hernandez Springer NP K62.5 Hemorrhage of 3:00p Medicine - anus and rectum [place] K59.00 Constipation, unspecified E53.8 Deficiency of other specified B group vitamins F41.9 Anxiety disorder, unspecified Office Visit 02/26/2017 2:00p Rheumatology Services Heriberto Gonzalez M79.1 Myalgia Of Gu[place] Peterson R53.83 Other fatigue R68.2 Dry mouth, unspecified R07.89 Other chest pain K92.1 Melena R25.1 Tremor, unspecified R70.0 Elevated erythrocyte sedimentation rate M54.2 Cervicalgia R76.8 Other specified abnormal immunological findings in serum Office Visit 01/29/2017 3:00p [facility] Kolton Loya A69.20 Lyme disease, For Infectious Kristen Murray unspecified Diseases R76.8 Other specified abnormal immunological findings in serum R29.898 Oth symptoms and signs involving the musculoskeletal system Office Visit 11/06/2016 3:15p Pulmonology And Kalyani G47.33 Obstructive sleep Sleep Services Of MD Yu apnea (adult) [facility] (pediatric) Office Visit 09/01/2015 3:20p Neurosurgery Juan Antonio Maciel M54.2 Cervicalgia Services Of [facility] Kristen Prieto Z98.89 Other specified postprocedural states Office Visit 11/18/2013 2:07p Sleep Disorder Mervin SK. 780.59 Sleep Disturbances Center Kristen Mederos Other 786.09 Dyspnea & Respiratory Abnormalities Other 780.79 Malaise And Fatigue Other Office Visit 12/29/2012 11:00a Neurosurgery Juan Antonio aMciel 723.1 Cervicalgia Services Of Guanako Prieto M.D. 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 Cervical W/O Myelopathy Plan of Treatment Future Appointment(s):02/12/2019 4:00 pm - Neelam Warren N.P. at [facility] Internal Medicine - [place]41/05/2019 10:30 am - Irena Moore DNP, RN, SHEET MANAGER-BC at Pulmonology And Sleep Services Of [facility]01/25/2019 - Neelam Warren N.P.F33.9 Major depressive disorder, recurrent, unspecifiedNew Medication:Bupropion HCL 100 mg - take 1 tablet by mouth two times dailyComments:I am sorry you are not feeling improve. In addition to the Sertraline I have prescribed Bupropion 100 mg. Take 1 tablet, twice daily. For your anxiety I have prescribed Clonazepam 0.5 mg. You may take this as needed for anxious every [address] sure not to drive if you have taken.Referral:Arminda Jean, [employer], Social WorkerFollow up:F/U in 2 weeks.F41.1 Generalized anxiety disorderNew Medication:Clonazepam 0.5 mg - take 1 tablet po tid prn anxiety
--- NOTE | 2019-01-26 16:52 | ED ---
Substance Abuse/Use - HPI Summary HPI Summary: This pt is a 43 y/o male presenting to [facility] after intentionally overdosing on Clonazepam today. Pt reports he took approximately 38 pills of 0.5 mg Clonazepam at around 1515 today. He states he was having a "bad day" and took these pills. However, he notes he doesn't want to hurt himself. Currently denies any pain, abd pain, chest pain. Denies any other drug use. Denies tobacco and alcohol use. PMHx includes depression. - History Of Current Complaint Chief Complaint: EDSuicidal Stated Complaint: I TOOK PRETTY MUCH ALL OF THESE PER PT Hx Obtained From: Patient Ingestion History: Type/Name Of Drug - Clonazepam, Amount Ingested - 38 pills of 0.5 mg Clonazepam, Approximate Time Of Ingestion - 15:15 today Overdose Characteristics: Oral Timing Of Abuse: Binge Use Severity Currently: Moderate Character: Depressed Aggravating Factor(s): Recent Stress Alleviating Factor(s): Nothing Associated Signs And Symptoms: Negative, Intentional Ingestion Related Hx: Recent Stressors, Suicidal: Gesture - Allergies/Home Medications Allergies/Adverse Reactions: Allergies Allergy/AdvReac Type Severity Reaction Status Date / Time Sulfa (Sulfonamide Allergy Severe Hives Verified 01/26/19 16:05 Antibiotics) ofloxacin Allergy Swelling Verified 01/26/19 16:05 pregabalin [From Lyrica] AdvReac Nausea Verified 01/26/19 16:05 bees Allergy Severe Swelling Uncoded 01/26/19 16:05 coconut AdvReac Severe GI Upset Uncoded 01/26/19 16:05 Home Medications: Home Medications clonazePAM [Clonazepam] 1 tab PO TID 01/26/19 [History Confirmed 01/26/19] PMH/Surg Hx/FS Hx/Imm Hx Endocrine/Hematology History: Denies: Hx Diabetes Cardiovascular History: Denies: Hx Hypertension, Hx Pacemaker/ICD Respiratory History: Reports: Hx Sleep Apnea - new CPAP user 02/2014, Other Respiratory Problems/Disorders - collapsed (left) lung age 19 Denies: Hx Asthma History: Reports: Other Problems/Disorders - s/p vasectomy, slow urine stream, family hx prostrate CA Musculoskeletal History: Reports: Hx Fibromyalgia Sensory History: Denies: Hx Hearing Aid Psychiatric History: Reports: Hx Depression - meds Denies: Hx Panic Disorder - Surgical History Surgery Procedure, Year, and Place[place] [facility] [place] Infectious Disease History: No Infectious Disease History: Denies: Traveled Outside the [place] in Last 30 Days - Family History Family History: Mother with afib - Social History Alcohol Use: None Substance Use Type: Reports: None Smoking Status (MU): Never Smoked Tobacco Review of Systems Negative: Fever, Chills Negative: Chest Pain Negative: Abdominal Pain Psychological: Other - POS: suicide attempt Positive: Depressed All Other Systems Reviewed And Are Negative: Yes Physical Exam - Summary Physical Exam Summary: Appearance: Well appearing, no pain distress Skin: warm, dry, reflects adequate perfusion Head/face: normal Eyes: EOMI, MANDIE ENT: normal Neck: supple, non-tender Respiratory: CTA, breath sounds present Cardiovascular: RRR, pulses symmetrical Abdomen: non-tender, soft Musculoskeletal: normal, strength/ROM intact Neuro: normal, sensory motor intact, A&Ox3 Psych: depressed affect Triage Information Reviewed: Yes Vital Signs On Initial Exam: Initial Vitals Temp Pulse Resp BP Pulse Ox 98.1 F 92 16 133/81 97 01/26/19 16:03 01/26/19 16:03 01/26/19 16:03 01/26/19 16:03 01/26/19 16:03 Vital Signs Reviewed: Yes Diagnostics - Vital Signs Vital Signs Temp Pulse Resp BP Pulse Ox 01/26/19 16:03 98.1 F 92 16 133/81 97 - Laboratory Lab Results: Lab Results 01/26/19 01/26/19 Range/Units 16:17 16:32 WBC 8.5 (3.5-10.8) 10^3/uL RBC 5.36 (4.18-5.48) 10^6 /uL Hgb 15.2 (14.0-18.0) g/dL Hct 44 (36-46) % MCV 83 (80-94) fL MCH 28 (27-31) pg MCHC 34 (31-36) g/dL RDW 13 (10.5-15) % Plt Count 246 (150-450) 10^3/uL MPV 8.3 (7.4-10.4) fL Neut % (Auto) 75.8 % Lymph % (Auto) 14.4 % [place] % (Auto) 9.3 % Eos % (Auto) 0.2 % Baso % (Auto) 0.3 % Absolute Neuts (auto) 6.4 (1.5-7.7) 10^3/ul Absolute Lymphs (auto) 1.2 (1.0-4.8) 10^3/ul Absolute Monos (auto) 0.8 (0-0.8) 10^3/ul Absolute Eos (auto) 0 (0-0.6) 10^3/ul Absolute Basos (auto) 0 (0-0.2) 10^3/ul Absolute Nucleated RBC 0 10^3/ul Nucleated RBC % 0 Urine Color Yellow Urine Appearance Clear Urine pH 6.0 (5-9) Ur Specific [place] 1.011 (1.010-1.030) Urine Protein Negative (Negative) Urine Ketones Negative (Negative) Urine Blood Negative (Negative) Urine Nitrate Negative (Negative) Urine Bilirubin Negative (Negative) Urine Urobilinogen Negative (Negative) Ur Leukocyte Esterase Negative (Negative) Urine Glucose Negative (Negative) Result Diagrams: 01/26/19 16:32 01/26/19 16:32 Lab Statement: Any lab studies that have been ordered have been reviewed, and results considered in the medical decision making process. - EKG 16:59 Cardiac Rate: NL - at 85 bpm EKG Rhythm: Sinus Rhythm Summary of EKG Findings: SD is 138. QT/QTc: 343/408 Course/Dx - Course Assessment/Plan: Pt is a 43 y/o male who presents to the ED after intentional overdose of Clonazepam today. Pt reports he took approximately 38 pills of 0.5 mg Clonazepam at 15:15 today. He states he was having a "bad day" and took these pills. ED nurse called poison control and they recommend 6 hour monitoring after presentation or until symptoms resolve. Blood work, urinalysis , toxicology were obtained. He is pending medical clearance and subsequent MHE. Pt will be signed out to Dr. Jaimes, pending disposition, awaiting MHE. - Diagnoses Differential Diagnosis/HQI/PQRI: Positive: Depression, Suicidal Risk, Other - dod Provider Diagnoses: Depression, Suicidal ideation, Overdose Discharge - Sign-Out/Discharge Documenting (check all that apply): Sign-Out Patient Signing out patient TO: Jonathon Jaimes - pending medical clearance, MHE and dispo Patient Received Moderate/Deep Sedation with Procedure: No - Discharge Plan Condition: Stable Referrals: Hernandez Springer, ROTARY ADJUSTER [Primary Care Provider] - - Billing Disposition and Condition Condition: STABLE - Attestation Statements Document Initiated by Yudy: Yes Documenting Scribe: Dianna Bosch Provider For Whom Scribe is Documenting (Include Credential): Davin Alicea MD Scribe Attestation: Dianna Jose, scribed for Davin Alicea MD on 01/26/19 at 2148. Scribe Documentation Reviewed: Yes Provider Attestation: The documentation as recorded by the Dianna parker accurately reflects the service I personally performed and the decisions made by , Davin Alicea MD Status of Scribe Document: Viewed
[2019-01-26 16:54] LABS: Barbiturates Urine Screen None Detected (None Detect); Benzodiazepine Urine Screen None Detected (None Detect); Urine Cannabinoids Screen None Detected (None Detect)
[2019-01-26 17:01] LABS: ALT 10 U/L (7-52); AST 10 U/L (13-39); Albumin 4.3 g/dL (3.2-5.2); Albumin/Globulin Ratio 1.7 (1-3); Alkaline Phosphatase 62 U/L (34-104); Anion Gap 6 mmol/L (2-11); BUN/Creatinine Ratio 8.5 (8-20); Blood Urea Nitrogen 10 mg/dL (6-24); CO2 Carbon Dioxide 26 mmol/L (22-32); Calcium 9.3 mg/dL (8.6-10.3); Chloride 107 mmol/L (101-111); EGFR African American 81.9 (>60); EGFR Non-African American 67.7 (>60); Globulin 2.6 g/dL (2-4); Glucose 88 mg/dL (70-100); Potassium 3.8 mmol/L (3.5-5.0); Sodium 139 mmol/L (135-145); Total Protein 6.9 g/dL (6.4-8.9)
[2019-01-26 17:03] LABS: Acetaminophen < 15 mcg/mL; Alcohol < 10 mg/dL (<10); Salicylate < 2.50 mg/dL (<30)
[2019-01-26 17:26] LABS: TSH (Thyroid Stimulating Horm) 1.15 mcIU/mL (0.34-5.60)
[2019-01-26] MEDS ORDERED: NS 0.9% 1000 ML** 1,000 ML IV ONE ×2 (18:24→19:01)
--- NOTE | 2019-01-26 21:59 | ED ---
Progress - Progress Note Progress Note: Pt was going to be a sign out to Dr. Jaimes, pending medical clearance and MHE. However, I discussed the case with Dr. Bello, hospitalist, who accepted the pt for admission. Course/Dx - Diagnoses Provider Diagnoses: Depression, Suicidal ideation, Overdose - Provider Notifications Discussed Care Of Patient With: Zion Bello - hospitalist Time Discussed With Above Provider: 21:58 Instructed by Provider To: Admit As Inpatient Discharge - Sign-Out/Discharge Documenting (check all that apply): Patient Departure - Admit to [facility] Patient Received Moderate/Deep Sedation with Procedure: No - Discharge Plan Condition: Stable Disposition: ADMITTED [facility] Referrals: Hernandez Springer, CLINICAL ADMISSIONS MANAGER [Primary Care Provider] - - Attestation Statements Document Initiated by Scribe: Yes Documenting Scribe: Dianna Bosch Provider For Whom Scribe is Documenting (Include Credential): Davin Alicea MD Scribe Attestation: IDianna, scribed for Davin Alicea MD on 01/26/19 at 4855. Status of Scribe Document: Ready
--- NOTE | 2019-01-26 23:19 | ADMNOTE ---
Subjective Date of Service: 01/26/19 Interval History: HISTORY AND PHYSICAL PCP: Neelam Warren NP CC: overdose HPI: Patient is 43 year old man with depression and anxiety who took 35 tablets of clonazepam 0.5 mg per report this evening. He wanted to commit suicide. His girlfriend became aware of this, and convinced him to drive himself to ER. He saw his PCP Neelam Warren NP the last few months re anxiety, had been prescribed this medication. He denies history of suicide attempt in past. Family History: Findings - Father in suicide, had alcoholism, mother alive , has a-fib Social History: Findings - , father of 3, has female partner, quit tobacco years ago, denies alcohol/drug use Past Medical History: Findings - PMH: sleep apnea, neck pain, depression; PSH: cervical fusion Review of Systems - Measurements Intake and Output: Intake and Output Last 24 Hours 01/24/19 01/25/19 01/26/19 01/27/19 06:59 06:59 06:59 06:59 Weight 67.132 kg - Review of Systems General Comments: poor historian, sedated Constitutional Symptoms: Positive: Fatigue Negative: Weight Loss Dermatology: Positive: Normal HEENT: Positive: Normal Eyes: Positive: Normal Thyroid: Positive: Normal Pulmonary: Positive: Normal Cardiology: Positive: Normal Gastroenterology: Positive: Normal Genital - Urinary: Positive: Normal Musculoskeletal: Positive: Joint Pain, Low Back Pain Endocrinology: Positive: Normal Neurology: Positive: Normal Psychiatry: Positive: Depression, Anxiety, Unusual Anxiety, Suicidal Ideation Objective Active Medications: Ambulatory Orders Ibuprofen TAB* [Motrin TAB* 400 MG] 800 mg PO Q8H PRN 11/17/13 Cyanocobalamin TAB* [Vitamin B12 TAB*] 500 mcg PO DAILY 02/26/18 Sertraline* [Zoloft*] 100 mg PO DAILY 02/26/18 clonazePAM [Clonazepam] 1 tab PO TID 01/26/19 Vital Signs - 8 hr 01/26/19 01/26/19 01/26/19 16:03 16:31 16:34 Temperature 36.7 C Pulse Rate 92 83 84 Respiratory 16 23 18 Rate Blood Pressure 133/81 137/68 (mmHg) O2 Sat by Pulse 97 95 96 Oximetry 01/26/19 01/26/19 01/26/19 22:00 22:02 22:32 Temperature Pulse Rate 58 57 59 Respiratory Rate Blood Pressure 99/70 107/63 (mmHg) O2 Sat by Pulse 99 98 96 Oximetry Oxygen Devices in Use Now: Nasal Cannula, Other - capnography in place also Appearance: somnolent, partially arouses to touch, says a few words Eyes: No Scleral Icterus Ears/Nose/Mouth/Throat: Clear Oropharnyx, - - dry mouth Neck: NL Appearance and Movements; NL JVP, Trachea Midline Respiratory: Symmetrical Chest Expansion and Respiratory Effort, Clear to Auscultation Cardiovascular: NL Sounds; No Murmurs; No JVD, RRR Abdominal: NL Sounds; No Tenderness; No Distention, No Hepatosplenomegaly Lymphatic: No Cervical Adenopathy, No Axillary Adenopathy Extremities: No Edema, No Clubbing, Cyanosis Skin: No Rash or Ulcers Neurological: - - oriented to self, place, constricted affect, sedated Lines/Tubes/Other Access: Clean, Dry and Intact Peripheral IV Nutrition: - - NPO Result Diagrams: 01/27/19 05:30 01/27/19 05:30 Additional Lab and Data: Laboratory Tests 01/26/19 01/26/19 01/26/19 16:17 16:32 18:11 ABG pH 7.41 ABG pCO2 44 ABG pO2 160 H Glucose 88 AST 10 L ALT 10 TSH 1.15 Salicylates < 2.50 Urine Opiates Screen None detected Acetaminophen < 15 Ur Barbiturates Screen None detected Ur Phencyclidine Scrn None detected Ur Amphetamines Screen None detected U Benzodiazepines Scrn None detected Urine Cocaine Screen None detected U Cannabinoids Screen None detected Serum Alcohol < 10 EKG Data: NSR, LVH, early repolarization Assess/Plan/Problems-Billing Assessment: 43 year old man with significant overdose of clonazepam, risk of respiratory failure - Patient Problems (1) Intentional benzodiazepine overdose Current Visit: Yes Status: Acute Priority: High Code(s): T42.4X2A - POISONING BY BENZODIAZEPINES, INTENTIONAL SELF-HARM, INIT SNOMED Code(s): 124555507 Comment: -Patient admitted to ICU, clonazepam has 20+ hour half-life, may have worsened respiratory failure, may require intubation in next 24 hours. -Will continue O2 supplement and capnography -One-to-one observation required -Psychiatry to see for consult when conversant -Unclear why UDS does not show benzo positive, may be lab error. (2) DVT prophylaxis Current Visit: Yes Status: Acute Priority: Low Code(s): EGS5326 - SNOMED Code(s): 789507469 Comment: low risk, can have TEDs (3) Major depress dis, severe Current Visit: Yes Status: Acute Priority: Medium Code(s): F32.2 - MAJOR DEPRESSV DISORD, SINGLE EPSD, SEV W/O PSYCH FEATURES SNOMED Code(s): 141803721 Comment: -Continue sertraline -psychiatry to evaluate Status and Disposition: Intensive care monitoring
[2019-01-27] MEDS: NS 0.9% 1000 ML** 1,000 ML IV SCH ×3 (00:16→13:25)
[2019-01-27 05:45] LABS: ABS Basophils 0 10^3/ul (0-0.2); ABS Eosinophils 0.1 10^3/ul (0-0.6); ABS Lymphocytes 1.9 10^3/ul (1.0-4.8); ABS Monocytes 0.9 10^3/ul (0-0.8); ABS Neutrophils 5.3 10^3/ul (1.5-7.7); ABS Nucleated RBC 0 10^3/ul; Eosinophil % 0.7 %; Hematocrit 43 % (36-46); Hemoglobin 14.3 g/dL (14.0-18.0); Lymphocyte % 22.9 %; Mean Corpuscular HGB Conc 33 g/dL (31-36); Mean Corpuscular Hemoglobin 28 pg (27-31); Mean Corpuscular Volume 85 fL (80-94); Mean Platelet Volume 8.5 fL (7.4-10.4); Nucleated Red Blood Cells % 0; Platelet Count 187 10^3/uL (150-450); Red Blood Count 5.07 10^6 /uL (4.18-5.48); Red Cell Distribution Width 13 % (10.5-15); White Blood Count 8.2 10^3/uL (3.5-10.8)
[2019-01-27 06:03] LABS: BUN/Creatinine Ratio 10.2 (8-20); Calcium 8.5 mg/dL (8.6-10.3); EGFR African American 101.5 (>60); EGFR Non-African American 83.9 (>60); Potassium 3.8 mmol/L (3.5-5.0)
[2019-01-27] MEDS ORDERED: Ibuprofen TAB* 400 MG PO PRN (07:13)
[2019-01-27] MEDS ORDERED: Ibuprofen TAB* 800 MG PO PRN (07:23)
[2019-01-27] MEDS: Cyanocobalamin TAB* 500 MCG PO SCH (08:57)
[2019-01-27] MEDS: Sertraline* 100 MG TAB PO SCH (08:58)
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
--- NOTE | 2019-01-27 13:35 | PN ---
Subjective Date of Service: 01/27/19 Interval History: Pt seen and examined this AM. Meds and labs reviewed. ROS: Denied CULLEN/dizziness, F/C, N/V, CP, SOB, increased cough, sputum production , abd pain, diarrhea, constipation, dysuria, myalgias, arthralgias, throat pain , and new skin lesions. The rest of the 14 point ROS are unremarkable. PHYSICAL EXAM: GEN APPEARANCE: Asleep, arousable, confused, not in acute distress, not oriented to time HEENT: NC/AT, PERRLA, moist oral mucosa, (-) throat erythema NECK: Soft, supple, (-) cervical LAD, (-)JVD HEART: S1S2 WNL, RRR, No MRG CHEST: CTA, BL, GAE, No W/R/R ABD: Soft, ND/NT, NABS 4x Q EXT: No C/C/E SKIN: Warm to touch PSYCH: No active psychosis, hallucinations, depression, SI/HI Family History: Findings - Father in suicide, had alcoholism, mother alive , has a-fib Social History: Findings - , father of 3, has female partner, quit tobacco years ago, denies alcohol/drug use Past Medical History: Findings - PMH: sleep apnea, neck pain, depression; PSH: cervical fusion Objective Active Medications: Cyanocobalamin (Vitamin B12 Tab*) 500 mcg PO DAILY [facility] Last Admin: 01/27/19 08:57 Dose: 500 mcg Sodium Chloride (Ns 0.9% 1000 Ml) 1,000 mls @ 150 mls/hr IV PER RATE [facility] Last Admin: 01/27/19 13:25 Dose: 150 mls/hr Ibuprofen (Motrin Tab*) 800 mg PO Q8H PRN PRN Reason: PAIN Sertraline HCl (Zoloft*) 100 mg PO DAILY [facility] Last Admin: 01/27/19 08:58 Dose: 100 mg Vital Signs - 8 hr 01/27/19 01/27/19 01/27/19 05:46 06:00 06:01 Temperature Pulse Rate 61 61 62 Respiratory 11 Rate Blood Pressure 99/57 90/63 (mmHg) O2 Sat by Pulse 94 100 100 Oximetry 01/27/19 01/27/19 01/27/19 06:17 06:30 06:46 Temperature Pulse Rate 81 74 Respiratory Rate Blood Pressure 91/71 105/73 98/67 (mmHg) O2 Sat by Pulse 98 99 Oximetry 01/27/19 01/27/19 01/27/19 07:00 07:16 07:30 Temperature Pulse Rate Respiratory 13 15 11 Rate Blood Pressure 107/76 101/69 99/63 (mmHg) O2 Sat by Pulse Oximetry 01/27/19 01/27/19 01/27/19 07:33 07:45 08:00 Temperature 97.9 F Pulse Rate 65 Respiratory 13 13 14 Rate Blood Pressure 91/67 91/56 (mmHg) O2 Sat by Pulse 97 Oximetry 01/27/19 01/27/19 01/27/19 08:01 08:15 08:30 Temperature Pulse Rate 67 66 65 Respiratory 13 14 13 Rate Blood Pressure 90/57 (mmHg) O2 Sat by Pulse 97 95 97 Oximetry 01/27/19 01/27/19 01/27/19 08:45 09:00 09:01 Temperature Pulse Rate 65 66 59 Respiratory 13 20 27 Rate Blood Pressure 92/54 89/62 (mmHg) O2 Sat by Pulse 98 97 94 Oximetry 01/27/19 01/27/19 01/27/19 09:15 10:00 10:01 Temperature Pulse Rate 69 75 72 Respiratory 18 15 20 Rate Blood Pressure 98/61 103/71 (mmHg) O2 Sat by Pulse 96 97 98 Oximetry 01/27/19 01/27/19 01/27/19 10:31 11:00 11:02 Temperature Pulse Rate 72 Respiratory 18 16 11 Rate Blood Pressure 111/69 (mmHg) O2 Sat by Pulse 99 Oximetry 01/27/19 11:24 Temperature 98.1 F Pulse Rate Respiratory Rate Blood Pressure (mmHg) O2 Sat by Pulse Oximetry Oxygen Devices in Use Now: Nasal Cannula, Other - capnography in place also Result Diagrams: 01/27/19 05:30 01/27/19 05:30 Additional Lab and Data: Laboratory Tests 01/26/19 01/26/19 01/26/19 16:17 16:32 18:11 ABG pH 7.41 ABG pCO2 44 ABG pO2 160 H Glucose 88 AST 10 L ALT 10 TSH 1.15 Salicylates < 2.50 Urine Opiates Screen None detected Acetaminophen < 15 Ur Barbiturates Screen None detected Ur Phencyclidine Scrn None detected Ur Amphetamines Screen None detected U Benzodiazepines Scrn None detected Urine Cocaine Screen None detected U Cannabinoids Screen None detected Serum Alcohol < 10 Microbiology and Other Data: Microbiology 01/27/19 00:01 Nasal Screen MRSA (PCR) - Final Nasal Mrsa Not Detected EKG Data: NSR, LVH, early repolarization Assess/Plan/Problems-Billing Assessment: 43 year old man with significant overdose of clonazepam, risk of respiratory failure - Patient Problems (1) Intentional benzodiazepine overdose Current Visit: Yes Status: Acute Priority: High Code(s): T42.4X2A - POISONING BY BENZODIAZEPINES, INTENTIONAL SELF-HARM, INIT SNOMED Code(s): 498184501 Comment: -Continue close monitoring in ICU -Will continue O2 supplement and capnography -One-to-one observation required -Appreciate psych eval; for transfer to with 1:1 observer and for possible transfer to another inpatient psych as there are currently no beds in [facility] -Unclear why UDS does not show benzo positive, may be lab error. (2) Major depress dis, severe Current Visit: Yes Status: Acute Priority: Medium Code(s): F32.2 - MAJOR DEPRESSV DISORD, SINGLE EPSD, SEV W/O PSYCH FEATURES SNOMED Code(s): 114320134 Comment: -Continue sertraline -psychiatry to evaluate (3) DVT prophylaxis Current Visit: Yes Status: Acute Priority: Low Code(s): [id number] - SNOMED Code(s): 558311931 Comment: low risk, can have TEDs Status and Disposition: -As above
[2019-01-28 05:21] LABS: ABS Basophils 0.1 10^3/ul (0-0.2); ABS Eosinophils 0.1 10^3/ul (0-0.6); ABS Neutrophils 7.5 10^3/ul (1.5-7.7); ABS Nucleated RBC 0 10^3/ul; Eosinophil % 0.9 %; Hematocrit 43 % (36-46); Hemoglobin 14.6 g/dL (14.0-18.0); Lymphocyte % 18.7 %; Mean Corpuscular HGB Conc 34 g/dL (31-36); Mean Corpuscular Hemoglobin 29 pg (27-31); Mean Corpuscular Volume 84 fL (80-94); Mean Platelet Volume 8.6 fL (7.4-10.4); Nucleated Red Blood Cells % 0; Platelet Count 203 10^3/uL (150-450); Red Blood Count 5.11 10^6 /uL (4.18-5.48); Red Cell Distribution Width 13 % (10.5-15); White Blood Count 10.6 10^3/uL (3.5-10.8)
[2019-01-28 05:42] LABS: Albumin 3.6 g/dL (3.2-5.2); Albumin/Globulin Ratio 1.4 (1-3); BUN/Creatinine Ratio 9.8 (8-20); Calcium 8.8 mg/dL (8.6-10.3); EGFR African American 96.9 (>60); EGFR Non-African American 80.1 (>60); Globulin 2.5 g/dL (2-4); Magnesium 1.9 mg/dL (1.9-2.7); Phosphorus 3.7 mg/dL (2.5-5.0); Potassium 3.7 mmol/L (3.5-5.0); Total Bilirubin 0.3 mg/dL (0.2-1.0); Total Protein 6.1 g/dL (6.4-8.9)
[2019-01-28 05:50] VITALS: BP 105/49
[2019-01-28] MEDS: Cyanocobalamin TAB* 500 MCG PO SCH (08:16)
[2019-01-28] MEDS: Sertraline* 100 MG TAB PO SCH (08:16)
--- NOTE | 2019-01-28 13:28 | CONSULT ---
Identification - Patient Identification Reason for Psychiatric Consultation: Suicidal Ideation -: Patient is a 43 year old, M admitted on 01/26/19. - MHU Identification Employment Status: Employed Hx Psychiatric Hospitalization: No History - Objective HPI: Anderson is seen for follow up in the ICU. He has dressed himself back into street clothes and is insisting on leaving the hospital AMA. "I don't care. You can't keep me. I'm not gonna take anymore of that medicine. I'm not a risk to myself." Mental Hygiene Legislation is explained to Mr. Corona and he is notified of his placement on involuntary status. He appears guarded , defensive and angry but does not act out aggressively. Exam Appearance: Well Developed/Nourished Hygiene: Normal Grooming: Well Kept Psychomotor Activities: Normal Exhibits Abnormal Movement: No Attitude and Relatedness: Hostile Eye Contact: Good - Speech Quality: Unpressured Latencies: Normal Quantity: Terse Patient's Decription of Mood: "Angry" Observed Affect: Constricted Affect Consistent with: Dysphoria Patient's Thought Process: Goal Directed Thought Content: No Passive Wish, No Suicidal Planning, No Homicidal Ideation, No Paranoid Ideation Experiencing Hallucinations: No, Sensorium is Clear Type of Hallucinations: Visual: No, Auditory: No, Command: No Level of Consciousness: Alert Orientation: Yes Intact, Yes Orientated to Time, Yes Orientated to Place, Yes Orientated to Person Impulse Control: Poor Insight and Judgement: Impaired Impression - Impression Clinical Impression: 43 y.o. , white male with a recent history of major depression currently admitted to the ICU following an intentional overdose on 35 tablets of 0.5mg strength clonazepam in a suicide attempt. Inpatient DSM-V Dx: F32.2 Merits Inpatient Hospitalization: Yes [facility]: Problem List - Patient Problems (1) Major depress dis, severe Current Visit: Yes Status: Acute Priority: High Code(s): F32.2 - MAJOR DEPRESSV DISORD, SINGLE EPSD, SEV W/O PSYCH FEATURES SNOMED Code(s): 788231595 Comment: -Continue sertraline -psychiatry to evaluate Plan - Treatment Plan Treatment Plan: We have resumed antidepressant therapy with sertraline 100mg PO qday. The patient warrants involuntary admission to the [facility] and a male bed has become available. Will transfer to [facility] on involuntary 9.39 legal status. Continued Medication Management: Continue Outpt Medication Medications: Current Medications Cyanocobalamin (Vitamin B12 Tab*) 500 mcg PO DAILY ON LICENSE OF [facility] Last Admin: 01/28/19 08:16 Dose: 500 mcg Ibuprofen (Motrin Tab*) 800 mg PO Q8H PRN PRN Reason: PAIN Sertraline HCl (Zoloft*) 100 mg PO DAILY ON LICENSE OF [facility] Last Admin: 01/28/19 08:16 Dose: 100 mg - Discharge Plan Discharge Plan: Inpatient Hospitalization
--- NOTE | 2019-01-29 01:06 | TRS ---
CC: Dr. Zion Bello; Dr. Davin Alicea; Dr. Noelle Pardo; Dr. Charlie Dorantes; Dr. Hector Mccormick; Dr. Jericho Schmidt * DISCHARGE/TRANSFER SUMMARY: DATE OF ADMISSION: DATE OF DISCHARGE: 01/28/19 DISCHARGE CONDITION: Stable. DISCHARGE DISPOSITION: Psychiatric facility at [facility]. DISCHARGE DIAGNOSES: Are as follows: 1. Intentional benzodiazepine overdose. 2. Severe major depressive disorder. DISCHARGE MEDICATIONS: Are as follows: 1. Cyanocobalamin 500 mcg p.o. daily. 2. Ibuprofen 800 mg p.o. q.8 p.r.n. 3. Sertraline 100 mg p.o. daily. 4. Clonazepam 0.5 mg p.o. t.i.d. HISTORY OF PRESENT ILLNESS/HOSPITAL COURSE: The patient is a 43-year-old gentleman with a history of anxiety and depression, who mentioned that he took 35 tablets of 0.5 mg tablets of clonazepam the evening of his admission. He clearly stated that he wanted to commit suicide. When his girlfriend became aware of this, she convinced him to drive himself to the ER. Of note, this medication was prescribed by his PCP, Ms. Neelam Warren NP, over the last few months for anxiety. He denies history of suicidal attempts in the past. He was admitted for observation and was hydrated and was managed conservatively. He was kept on sertraline for his depression and was evaluated by Psychiatry who agreed with the above plan. Upon evaluation, he was found to be a danger to himself and hence an inpatient psychiatric involuntary admission was recommended. He stayed in the ICU for another day while awaiting male bed in the [facility] and/or availability of bed in other psychiatric facility. Fortunately, a male bed has become available at [facility] and hence we will transfer the patient who is currently hemodynamically stable and medically stable to [facility]. He had been advised to follow up and recall his PCP within 3 days post discharge from the [facility]. He was advised that if symptoms resume or develop new ones or feel unwell for any reason, to call his PCP first. If his PCP cannot entertain him due to scheduling issues alone, he was advised to call [facility] if the issue is considered nonemergent. He was advised to call my office regarding any questions, concerns, or further clarifications regarding his discharge plans and/or prescriptions and to take his medications as prescribed. REVIEW OF SYSTEMS: The patient denied any headache, dizziness, fevers, chills, nausea, vomiting, chest pain, shortness of breath, increased cough and/or sputum production, abdominal pain, diarrhea, constipation, pain and/or increased frequency in urination, myalgias, arthralgias, throat pain, or new skin lesions. The rest of the 14-point review of systems are otherwise unremarkable. PHYSICAL EXAMINATION: Reveals the most recent vitals signs of record with blood pressure of 105/49, 18 per minute respiratory rate, 98.4 degrees Fahrenheit. General Appearance: The patient is awake, alert, and oriented x3, not in any acute distress. HEENT: Normocephalic, atraumatic. PERRLA. Extraocular muscles intact. Negative for icterus. Moist oral mucosa. Negative throat erythema. Neck is soft, supple with no cervical lymphadenopathy. No JVD. Heart: S1, S2 within normal limits. Regular rate and rhythm. No murmurs , rubs, and gallops. Chest: Clear to auscultation bilaterally. Good air entry. No wheezes, rales, or rhonchi. Abdomen is soft, nondistended, nontender. Normoactive bowel sounds x4 quadrants. Extremities: No cyanosis, clubbing, or edema. Psychiatric: No active psychosis or depression. TIME SPENT: The total time spent evaluating the patient, reviewing pertinent data, and appropriate documentation is 45 minutes. [id number]/[facility] #: [id number] MTDD
== END 2019-01-28 14:02 | DRG 918 ==
LOC: ED 16:01 → ICU 22:50
PROVIDERS: ADMIT Internal Medicine; ATTEND Student in an Organized Health Care Education/Training Program
DX: T42.4X2A Poisoning by benzodiazepines, intentional self-harm, initial encounter (principal); F32.2 Major depressive disorder, single episode, severe without psychotic features; R45.851 Suicidal ideations; F41.9 Anxiety disorder, unspecified; G47.30 Sleep apnea, unspecified; M50.30 Other cervical disc degeneration, unspecified cervical region; Y92.9 Unspecified place or not applicable; Z81.1 Family history of alcohol abuse and dependence; Z82.49 Family history of ischemic heart disease and other diseases of the circulatory system; Z87.891 Personal history of nicotine dependence; Z79.1 Long term (current) use of non-steroidal anti-inflammatories (NSAID); Z79.899 Other long term (current) drug therapy; Z91.030 Bee allergy status; Z88.2 Allergy status to sulfonamides; Z88.8 Allergy status to other drugs, medicaments and biological substances; Z91.018 Allergy to other foods
CPT/HCPCS: 36415; 80048; 80053; 80307; 80320; 80329; 81003; 82803; 83735; 84100; 84443; 85025; 86703; 87641; 93005; 99285; A9270-GY; G0480

== ENCOUNTER 2019-04-13 14:00 | Emergency (ER) | payer OTHER ==
[2019-04-13 14:12] VITALS: BP 116/77
--- NOTE | 2019-04-13 14:21 | UC ---
Eye Complaint HPI - HPI Summary HPI Summary: 43 yo male presents with b/l eye redness and itching. He tells me that last week he had a stye in his left lower eyelid that has since resolved. Over the last 2 days has noticed b/l eye redness and itching. He has been using visine eye drops with good relief. He tells me that his is concerned he has pink eye. Denies FB in eyes, drainage from eyes, vision changes. No contact usage. - History of Current Complaint Chief Complaint: UCEye Stated Complaint: EYE COMPLAINT Time Seen by Provider: 04/13/19 14:15 Hx Obtained From: Patient Onset/Duration: Sudden Onset Severity Currently: None Pain Intensity: 0 - Allergies/Home Medications Allergies/Adverse Reactions: Allergies Allergy/AdvReac Type Severity Reaction Status Date / Time Sulfa (Sulfonamide Allergy Severe Hives Verified 04/13/19 14:06 Antibiotics) ofloxacin Allergy Swelling Verified 04/13/19 14:06 pregabalin [From Lyrica] AdvReac Nausea Verified 04/13/19 14:06 bees Allergy Severe Swelling Uncoded 04/13/19 14:06 coconut AdvReac Severe GI Upset Uncoded 04/13/19 14:06 PMH/Surg Hx/FS Hx/Imm Hx Psychological History: Depression - Surgical History Surgical History: Yes Surgery Procedure, Year, and Place: CSP FUSION 12/24/2011 AT [facility] – [place] - Family History Family History: Mother with afib - Social History Occupation: Employed Full-time Lives: With Family Alcohol Use: None Substance Use Type: None Smoking Status (MU): Never Smoked Tobacco - Immunization History Most Recent Influenza Vaccination: 2018 Most Recent Pneumonia Vaccination: none Review of Systems All Other Systems Reviewed And Are Negative: Yes Constitutional: Positive: Negative Skin: Positive: Negative Eyes: Positive: Eye Redness ENT: Positive: Negative Respiratory: Positive: Negative Cardiovascular: Positive: Negative Neurovascular: Positive: Negative Neurological: Positive: Negative Psychological: Positive: Negative Physical Exam - Summary Physical Exam Summary: GENERAL: WDWN. No pain distress. SKIN: No rashes, sores, lesions, or open wounds. HEENT: Head: AT/NC Eyes: EOM intact. PERRLA. B/L EYES: Mild scleral injection. Conjunctiva with mild erythema and inflammation. No discharge, edema, or FB appreciated. Nose: NTTP maxillary and frontal sinus. NECK: Supple. Nontender. No lymphadenopathy. CHEST: No accessory muscle use. Breathing comfortably and in no distress. CV: Pulses intact. Cap refill <2seconds NEURO: Alert. PSYCH: Age appropriate behavior. Triage Information Reviewed: Yes Vital Signs: Initial Vital Signs Temp 97.1 F 04/13/19 14:07 Pulse 82 04/13/19 14:07 Resp 16 04/13/19 14:07 BP 116/77 04/13/19 14:07 Pulse Ox 99 04/13/19 14:07 Vital Signs Reviewed: Yes Eye Complaint Course/Dx - Course Course Of Treatment: Suspect allergic conjunctivitis. Advised to continue using Visine and will rx for polytrim eye drops if he develops crusting/drainage in the next 2-3 days. - Differential Dx/Diagnosis Provider Diagnosis: Allergic conjunctivitis Discharge - Sign-Out/Discharge Documenting (check all that apply): Patient Departure All imaging exams completed and their final reports reviewed: No Studies - Discharge Plan Condition: Stable Disposition: HOME Prescriptions: Polymyx/Trimethoprim OPTH* [Polytrim OPHTH*] 1 drop BOTH EYES QID #1 btl Patient Education Materials: Allergic Rhinitis (DC), Conjunctivitis (ED) Referrals: [facility] [facility] [Primary Care Provider] - Additional Instructions: If you develop a fever, shortness of breath, chest pain, new or worsening symptoms - please call your PCP or go to the ED immediately. Your eye redness and itching appear due to irritation and allergies and not infection at this time. If you develop yellow/green drainage or crusting or have increased redness within the next 2-3 days - please start the antibiotic eye drops called into the pharmacy for you - Billing Disposition and Condition Condition: STABLE Disposition: Home
== END 2019-04-13 14:26 | disposition home or self-care (01) ==
LOC: UCEAST 14:00
DX: H10.13 Acute atopic conjunctivitis, bilateral (principal); F32.9 Major depressive disorder, single episode, unspecified; Z88.2 Allergy status to sulfonamides
CPT/HCPCS: 99212; G0463